=== PATIENT | female | born 1980 ===

== ENCOUNTER → 2023-09-19 | Outpatient (CLI) | payer BC ==
[2023-09-19 15:48] LABS: Basophils # (A) 0.02 X 10*3/uL (0.00-0.10); Basophils % (A) 0.4 %; Eosinophils # (A) 0.07 X 10*3/uL (0.04-0.35); Eosinophils % (A) 1.4 %; HGB 13.6 g/dL (12.0-15.0); Lymphocytes # (A) 1.49 X 10*3/uL (0.90-5.00); Lymphocytes % (A) 28.8 %; MCH 28.4 pg (27.0-32.0); MCHC 33.2 g/dL (32.0-37.0); MCV 85.6 FL (80.0-97.0); Mean Platelet Volume 11.5 FL (9.5-12.2); Monocytes # (A) 0.27 X 10*3/uL (0.20-1.00); Monocytes % (A) 5.2 %; NRBC Per 100 WBC 0 X 10*3/uL (0.00-0.01); Neutrophils % (A) 63.8 %; Platelet Count 210 X 10*3/uL (140-440); RBC 4.79 X 10*6/uL (4.10-5.20); RDW 11.9 % (11.5-14.5); WBC 5.17 X 10*3/uL (4.50-10.00)
[2023-09-19 16:40] LABS: BUN/Creat Ratio 18.62 Ratio (12.00-20.00); Blood Urea Nitrogen 14.9 mg/dL (9.0-27.0); Carbon Dioxide 23.3 mmol/L (21.6-31.8); Chloride 103 mmol/L (96-109); Chol/HDL Ratio 2.22 Ratio; Estradiol 52.3 pg/mL; Glucose 94 mg/dL (70-110); LDL Cholesterol,Calculated 82.9 mg/dL (0.0-131.0); Potassium 3.9 mmol/L (3.5-5.5); Sodium 137 mmol/L (135-145); VLDL Calculation 12.24 mg/dL (5.00-40.00)
[2023-09-19 16:41] LABS: ALT 10 U/L (8-44); AST 15 U/L (13-35); Albumin 4.4 g/dL (3.8-4.9); Albumin/Globulin Ratio 1.57 Ratio (1.60-3.17); Alkaline Phosphatase 53 U/L (41-126); Calcium 8.9 mg/dL (8.7-10.3); Globulin 2.8 g/dL (1.6-3.3); Total Bilirubin 0.3 mg/dL (0.3-1.2); Total Protein 7.2 g/dL (6.2-8.2)
[2023-09-19 16:43] LABS: Follicle Stimulating Hormone 9.1 mIU/mL
== END | disposition home or self-care (01) ==
LOC: LABWHC1 10:56
PROVIDERS: ATTEND Nurse Practitioner Family
DX: Z00.00 Encounter for general adult medical examination without abnormal findings (principal); N95.9 Unspecified menopausal and perimenopausal disorder
CPT/HCPCS: 36415; 80053; 80061; 82306; 82670; 83001; 84144; 84403; 84443; 85025

== ENCOUNTER → 2023-12-02 | Outpatient (CLI) | payer BC ==
--- NOTE | 2023-12-02 19:23 | US ---
EXAMINATION TYPE: US venous doppler duplex LE RT DATE OF EXAM: 12/02/2023 10:15 AM COMPARISON: NONE CLINICAL INDICATION: Female, 43 years old with history of Z79.890 HORMONE REPLACEMENT THERAPY; No red ness or swelling. Behind the knee pain and calf tightness after HRT. SIDE PERFORMED: Right TECHNIQUE: The lower extremity deep venous system is examined utilizing real time linear array sonog marcos with graded compression, doppler sonography and color-flow sonography. VESSELS IMAGED: Common Femoral Vein Deep Femoral Vein Greater Saphenous Vein * Femoral Vein Popliteal Vein Small Saphenous Vein * Proximal Calf Veins (* superficial vessels) Right Leg: Negative for DVT IMPRESSION: Grayscale, color doppler, spectral doppler imaging performed of the deep veins of the lo wer extremities. There is normal flow, compressibility, vascular waveforms.
== END | disposition home or self-care (01) ==
LOC: RADUSWWP 10:13
PROVIDERS: ATTEND Family Medicine
DX: M25.561 Pain in right knee (principal); Z79.890 Hormone replacement therapy

== ENCOUNTER → 2024-08-03 | Outpatient (CLI) | payer BC ==
--- NOTE | 2024-08-03 13:36 | USB ---
Patient History: Menarche at age 12. Patient has no children. Currently using Estrogen and Progesterone, for 6 months. Paternal aunt had breast cancer at or over age 50. Risk Values: Mae 5 year model risk: 0.8%. NCI Lifetime model risk: 7.4%. Technique: Method: Targeted. Doppler: Color. Patient Position: Supine. Prior Study Comparison: 08/01/2021 Bilateral MG 3D diag mammo w/cad KE[facility] - 2, Unknown. Findings: The lower outer quadrant of the left breast, the lower inner quadrant of the left breast, the axilla of the left breast and the retroareolar of the left breast were scanned. At the 5:00 position 3 cm nipple is an oval hypoechoic area which may have some mild shadowing this measures 1.3 x 1.5 x 0.7 cm and may correlate with the mammographic finding. Ultrasound-guided core biopsy of this lesion is recommended. There is an additional hypoechoic area with posterior shadowing measuring 1.4 x 0.8 x 1.3 cm. This may represent a fibroadenoma. Neoplasm is not excluded. Ultrasound-guided core biopsy of this area is recommended. Overall Assessment: Suspicious, BI-RAD 4 Management: Ultrasound Core Biopsy of the left breast. A clinical breast exam by your physician is recommended on an annual basis and results should be correlated with mammographic findings. This exam should not preclude additional follow-up of suspicious palpable abnormalities. Results were given to the patient verbally at the time of exam. [facility], , 08/03/2024 12:17 PM. Electronically signed and approved by: Devan Lyn D.O. Radiologis
--- NOTE | 2024-08-03 13:37 | MM ---
Reason for Exam: Clinical finding. Last mammogram was performed 3 year(s) and 0 month(s) ago. Indicated Problems: Pain of both sides (Global) for 20 Year(s). Patient History: Menarche at age 12. Patient has no children. Currently using Estrogen and Progesterone, for 6 months. Paternal aunt had breast cancer at or over age 50. Last menstrual period: 07/14/2024 Risk Values: Mae 5 year model risk: 0.8%. NCI Lifetime model risk: 7.4%. Prior Study Comparison: 08/01/2021 Bilateral MG 3D diag mammo w/cad [facility] - 2, Unknown. Tissue Density: The breasts are extremely dense, which lowers the sensitivity of mammography. Findings: Analyzed By CAD. The pattern is symmetrical. There is a focal asymmetry within the left posterior craniocaudal projection this measures approximately 9 mm and is located 4 cm from the nipple. Additional workup with ultrasound is recommended. There are a few scattered calcifications within the posterior left breast region. Magnification views appear without suspicious cluster of microcalcifications. Right breast:No suspicious groups of microcalcifications, spiculated or lobular masses, architectural distortion or other secondary signs of malignancy are mammographically apparent. Overall Assessment: Incomplete: need additional imaging evaluation, BI-RAD 0 Management: Diagnostic Breast Ultrasound of the left breast. A negative mammogram report should not preclude additional follow up of suspicious palpable abnormalities. Patient should continue monthly self breast exam. A clinical breast exam by your physician is recommended on an annual basis and results should be correlated with mammographic findings. Note on Mae scores and lifetime risk: 1. A Mae score greater than 3% is considered moderate risk. If this is the case, consider specialist referral to assess eligibility for a risk reducing agent. 2. If overall lifetime risk for the development of breast cancer is 20% or higher, the patient may qualify for future screening with alternating mammogram and breast MRI. [facility], , 08/03/2024 12:14 PM. Electronically signed and approved by: Devan Lyn D.O. Radiologis
== END | disposition home or self-care (01) ==
LOC: RADMAMWWP 10:24
PROVIDERS: ATTEND Internal Medicine
DX: N64.4 Mastodynia (principal); Z80.3 Family history of malignant neoplasm of breast; R92.343 Mammographic extreme density, bilateral breasts
CPT/HCPCS: 77062; 77066

== ENCOUNTER → 2024-08-26 | Day surgery (SDC) | payer BC ==
--- NOTE | 2024-09-01 14:32 | MM ---
Reason for Exam: Post Procedure Mammogram. Last screening mammogram was performed less than 1 month ago. Patient History: Menarche at age 12. Patient has no children. Currently using Estrogen and Progesterone, for 6 months. Paternal aunt had breast cancer at or over age 50. Risk Values: Mae 5 year model risk: 0.8%. NCI Lifetime model risk: 7.4%. Prior Study Comparison: 08/01/2021 Bilateral MG 3D diag mammo w/cad [facility] - 2, Unknown. 08/03/2024 Bilateral MG 3D diag mammo w/cad KEITH, [facility]. Tissue Density: Left: The breasts are extremely dense, which lowers the sensitivity of mammography. Pathology Description: Location: 9 o'clock. Marker Left Behind. Needle Type: Mammotome Cores: 4 Skin Nicks: 1 Gauge: 13 The procedure of ultrasound guided core biopsy was explained to the patient. Benefits, alternatives, and risks were discussed. An informed consent was then obtained. A timeout was performed. The patient was placed in supine positioning for imaging and for the procedure. The overlying skin was prepped and draped in usual sterile fashion. Lidocaine was used as anesthetic into the skin and subcutaneous tissue up to area of concern in the left breast. A small skin gage was made with surgical scalpel. 9:00 position: Under ultrasound guidance, a 12-gauge vacuum assisted biopsy gun device was used to obtain 4 core samples. A biopsy clip was left in lesion. Hydromark butterfly core marker was placed. 5:00 position: Under ultrasound guidance, a 12-gauge vacuum assisted biopsy gun device was used to obtain 5 core samples. A biopsy clip was left in lesion. Hydromark coil core marker was placed. The patient tolerated the procedure well without any immediate complication. The patient was kept in the radiology department for short stay after the procedure and then discharged home in stable condition. Postprocedure mammogram: The patient was transferred to mammography for physician ordered post procedure mammogram for clip placement verification. Post procedure mammogram demonstrates the clip in appropriate placement. Impression: Successful ultrasound guided core biopsy of 2 areas of concern in the left breast, full pathology results to follow. Recommendations: 1. Recommendations are pending pathology results. [facility], , 08/26/2024 7:11 PM. Pathology Results: Results pending. Pathology Description: Location: 5 o'clock. Marker Left Behind. Needle Type: Mammotome Cores: 5 Skin Nicks: 1 Gauge: 13 The procedure of ultrasound guided core biopsy was explained to the patient. Benefits, alternatives, and risks were discussed. An informed consent was then obtained. A timeout was performed. The patient was placed in supine positioning for imaging and for the procedure. The overlying skin was prepped and draped in usual sterile fashion. Lidocaine was used as anesthetic into the skin and subcutaneous tissue up to area of concern in the left breast. A small skin gage was made with surgical scalpel. 9:00 position: Under ultrasound guidance, a 12-gauge vacuum assisted biopsy gun device was used to obtain 4 core samples. A biopsy clip was left in lesion. Hydromark butterfly core marker was placed. 5:00 position: Under ultrasound guidance, a 12-gauge vacuum assisted biopsy gun device was used to obtain 5 core samples. A biopsy clip was left in lesion. Hydromark coil core marker was placed. The patient tolerated the procedure well without any immediate complication. The patient was kept in the radiology department for short stay after the procedure and then discharged home in stable condition. Postprocedure mammogram: The patient was transferred to mammography for physician ordered post procedure mammogram for clip placement verification. Post procedure mammogram demonstrates the clip in appropriate placement. Impression: Successful ultrasound guided core biopsy of 2 areas of concern in the left breast, full pathology results to follow. Recommendations: 1. Recommendations are pending pathology results. [facility], , 08/26/2024 7:12 PM. Pathology Results: Result: Benign, Fibroadenoma. Pathology and radiology were reviewed. Findings are concordant. A. LEFT BREAST. FIVE O'CLOCK, NEEDLE CORE BIOPSY: Fibroadenoma. B. LEFT BREAST, NINE O'CLOCK, NEEDLE CORE BIOPSY: Fibroadenoma. Overall Assessment: Benign Assessment: MG diagnostic mammo LT wo CAD. - Left: Benign, BI-RAD 2. Management: Diagnostic Mammogram of the left breast in 6 months. Electronically signed and approved by: Devan Lyn D.O. Radiologis
== END ==
LOC: RADUSWWP 12:45
PROVIDERS: ATTEND Internal Medicine
DX: D24.2 Benign neoplasm of left breast (principal); Z80.3 Family history of malignant neoplasm of breast
CPT/HCPCS: 88305; 77065; 19083; 19084; A4648